=== PATIENT | male | born 1955 | race African-American/Black ===

== ENCOUNTER 2018-04-10 15:54 | Inpatient (IN) | payer MEDICARE, OTHER, SELFPAY ==
[~2018-04-10] VITALS: Ht 193 cm; Wt 129.3 kg
[2018-04-10] MEDS ORDERED: ASPIRIN 81 MG TABLET CHEW PO ONE (16:00)
[2018-04-10] MEDS ORDERED: SODIUM CHLORIDE FLUSH 10ML SYR IVF ONE (16:00)
[2018-04-10] MEDS ORDERED: ASPIRIN 81 MG TABLET CHEW ONE (16:16)
[2018-04-10] MEDS ORDERED: ASPI81TA50 PO (16:22)
[2018-04-10 16:52] LABS: ALBUMIN 3.8 g/dL (3.4-5.0); ANION GAP 8 mmol/L (5-15); CALCIUM 9.2 mg/dL (8.5-10.1); CHLORIDE 109 mmol/L (98-107)
[2018-04-10 16:58] LABS: ALANINE AMINOTRANSFERASE 28 U/L (12-78); ALKALINE PHOSPHATASE 91 U/L (45-117); BILIRUBIN,TOTAL 1.2 mg/dL (0.2-1.0); CREATININE 1.16 mg/dL (0.7-1.3); TOTAL PROTEIN 8.3 g/dL (6.4-8.2); TROPONIN I < 0.015 ng/mL (0.000-0.045)
[2018-04-10] MEDS ORDERED: LABETALOL 5MG/ML, 20ML IVPush ONE (17:00)
[2018-04-10 17:23] LABS: BASOPHILS # (AUTO) 0.03 x10^3/uL (0-0.1); BASOPHILS % (AUTO) 0 % (0-1); EOSINOPHILS # (AUTO) 0.09 x10^3/uL (0-0.4); EOSINOPHILS % (AUTO) 1 % (1-7); LYMPHOCYTES % (AUTO) 22 % (22-44); MD NO; MEAN CORPUSCULAR HEMOGLOBIN 29.5 pg (27.5-34.5); MEAN CORPUSCULAR HGB CONC 32.9 g/dL (33.2-36.2); MEAN CORPUSCULAR VOLUME 89.8 fL (81-97); MEAN PLATELET VOLUME 8.9 fL (7.4-10.4); MONOCYTES # (AUTO) 0.76 x10^3/uL (0.2-0.8); MONOCYTES % (AUTO) 8 % (2-9); NEUTROPHILS # (AUTO) 6.28 x10^3/uL (1.8-6.8); NEUTROPHILS % (AUTO) 69 % (42-75); PLATELET COUNT 206 x10^3/uL (130-400); RED BLOOD COUNT 5.75 x10^6/uL (4.38-5.82); RED CELL DISTRIBUTION WIDTH 14.8 % (9.4-14.8)
[2018-04-10] MEDS ORDERED: LABETALOL 5MG/ML, 20ML ONE (17:30)
[2018-04-10] MEDS ORDERED: morphine SULFATE 10 MG/ML, 1ML IVPush PRN (18:00)
[2018-04-10] MEDS ORDERED: ACETAMINOPHEN 325 MG TABLET PO PRN (18:00)
[2018-04-10] MEDS ORDERED: HYDROcodone/APAP 5/325 TABLET PO PRN (18:00)
[2018-04-10] MEDS ORDERED: TEMAZEPAM 15 MG CAPSULE PO PRN (18:00)
[2018-04-10] MEDS ORDERED: NITROGLYCERIN 0.4 MG BOTTLE (25 TABS) SL PRN (18:00)
[2018-04-10] MEDS ORDERED: ONDANSETRON 2MG/ML, 2ML IVPush PRN (18:00)
[2018-04-10] MEDS ORDERED: hydrALAzine 20 MG/ML, 1ML IVPush PRN (18:00)
[2018-04-10 18:31] VITALS: BP 153/87
[2018-04-10] MEDS ORDERED: ENOXAPARIN 40 MG/0.4 ML SQ SCH (20:00)
[2018-04-10 20:03] VITALS: BP 150/84
[2018-04-10] MEDS: LISINOPRIL 20 MG TABLET PO SCH (20:29)
[2018-04-10] MEDS: METOPROLOL TARTRATE 50 MG TABLET PO SCH (20:30)
[2018-04-10] MEDS ORDERED: ATORVASTATIN 40 MG TABLET PO SCH (21:00)
[2018-04-10 22:53] LABS: TROPONIN I < 0.015 ng/mL (0.000-0.045)
[2018-04-11 00:42] VITALS: BP 116/72
[2018-04-11 04:46] LABS: CHLORIDE 109 mmol/L (98-107)
[2018-04-11 04:56] LABS: ALANINE AMINOTRANSFERASE 22 U/L (12-78); ALBUMIN 3.4 g/dL (3.4-5.0); ALKALINE PHOSPHATASE 82 U/L (45-117); ANION GAP 9 mmol/L (5-15); BILIRUBIN,TOTAL 0.9 mg/dL (0.2-1.0); CALCIUM 8.9 mg/dL (8.5-10.1); CHOL/HDL RATIO 3.8; CHOLESTEROL, TOTAL 173 mg/dL (140-239); CREATININE 1.17 mg/dL (0.7-1.3); HDL CHOL % 26 % (26-37); HDL CHOLESTEROL (DIRECT) 45 mg/dL (40-60); LDL CHOLESTEROL,CALCULATED 95 mg/dL (54-169); LDL/HDL RATIO 2.1 (0.5-3.0); TOTAL PROTEIN 7.3 g/dL (6.4-8.2); TRIGLYCERIDES 166 mg/dL (50-200); TROPONIN I < 0.015 ng/mL (0.000-0.045); VLDL CHOLESTEROL 33 mg/dL (0-25)
[2018-04-11] MEDS ORDERED: ASPIRIN 81 MG TABLET EC PO SCH (06:00)
[2018-04-11 08:04] VITALS: BP 104/67
[2018-04-11] MEDS ORDERED: REGADENOSON 0.4 MG/5 ML SYRINGE ONE (08:39)
[2018-04-11] MEDS: LISINOPRIL 20 MG TABLET PO SCH (11:00)
[2018-04-11] MEDS: METOPROLOL TARTRATE 50 MG TABLET PO SCH (11:02)
[2018-04-11 13:04] VITALS: BP 112/72
[2018-04-11] MEDS ORDERED: METO50TA82 PO (15:10)
[2018-04-11] MEDS ORDERED: LISI-170 PO (15:10)
[2018-04-11] MEDS ORDERED: ATOR40TA78 PO (15:10)
== END 2018-04-11 17:01 | disposition home or self-care (01) | DRG 303 ==
LOC: SUATTDRO 17:21 → ED 17:43 → EDIP 17:44 → ED 17:47 → 5SO 18:29 → DCLOUNGE 04-11 16:48
PROVIDERS: ADMIT Internal Medicine; ATTEND Internal Medicine
DX: I25.10 Atherosclerotic heart disease of native coronary artery without angina pectoris (principal); E66.01 Morbid (severe) obesity due to excess calories; I10 Essential (primary) hypertension; Z82.49 Family history of ischemic heart disease and other diseases of the circulatory system; Z95.1 Presence of aortocoronary bypass graft; Z91.14 Patient's other noncompliance with medication regimen; Z68.34 Body mass index [BMI] 34.0-34.9, adult
CPT/HCPCS: 36415; 71045; 78452; 80053; 80061; 83690; 83880; 84443; 84484; 85025; 93005; 93017; 93306; 99285; G0378; J1650; J2785; A9502; C9898